=== PATIENT | male | born 1985 | race Caucasian/White ===

== ENCOUNTER 2019-06-26 11:36 | Emergency (ER) | payer BC ==
[~2019-06-26] VITALS: Ht 172.7 cm; Wt 75.3 kg
[2019-06-26] MEDS ORDERED: SULF500T2 PO (11:41)
[2019-06-26] MEDS ORDERED: MERC50TA2 PO (11:41)
[2019-06-26] MEDS ORDERED: IBUPROFEN 400 MG TAB PO ONE (12:15)
[2019-06-26] MEDS ORDERED: PERCOCET 5MG/325MG TAB PO ONE (12:15)
[2019-06-26] MEDS ORDERED: KEFL500C17 PO (12:48)
[2019-06-26] MEDS ORDERED: NORC1TAB7 PO (12:48)
[2019-06-26 13:04] VITALS: BP 159/84
--- NOTE | 2019-06-26 13:35 | REP ---
RIGHT FIRST AND SECOND DIGITS: Five views of the right first and second digits are performed. There is amputation of a portion of the tip of the 1st and 2nd digits soft tissues. There is also amputation of a portion of a tuft of the first distal phalanx. There is also amputation of a portion of a 2nd distal phalanx posteriorly as seen on the lateral view. Otherwise, no fracture or dislocation is seen. Electronically Signed by Jerod Styles MD 06/26/2019 04:21 P
== END 2019-06-26 13:08 | disposition home or self-care (01) ==
LOC: M ED 11:36
DX: S68.120A Partial traumatic metacarpophalangeal amputation of right index finger, initial encounter (principal); S68.021A Partial traumatic metacarpophalangeal amputation of right thumb, initial encounter; W31.2XXA Contact with powered woodworking and forming machines, initial encounter; Y92.098 Other place in other non-institutional residence as the place of occurrence of the external cause; K51.90 Ulcerative colitis, unspecified, without complications; Z79.2 Long term (current) use of antibiotics

== ENCOUNTER 2019-06-27 12:56 | Emergency (ER) | payer BC ==
[~2019-06-27] VITALS: Ht 172.7 cm; Wt 75.0 kg
[~2019-06-27 12:56] MED LIST: KEFL500C17 PO; MERC50TA2 PO; NORC1TAB7 PO; SULF500T2 PO
[2019-06-27 12:57] VITALS: BP 132/69
== END 2019-06-27 13:41 | disposition home or self-care (01) ==
LOC: M ED 12:56
DX: Z48.00 Encounter for change or removal of nonsurgical wound dressing (principal); S61.101A Unspecified open wound of right thumb with damage to nail, initial encounter; S61.300A Unspecified open wound of right index finger with damage to nail, initial encounter; W31.2XXA Contact with powered woodworking and forming machines, initial encounter; Y92.89 Other specified places as the place of occurrence of the external cause; Z79.899 Other long term (current) drug therapy; Z79.2 Long term (current) use of antibiotics

== ENCOUNTER → 2020-03-14 | Outpatient (REF) | payer BC | LOC: M LAB REF 12:35 | PROVIDERS: ATTEND Nurse Practitioner Adult Health | DX: D64.9 Anemia, unspecified (principal); K51.919 Ulcerative colitis, unspecified with unspecified complications ==

== ENCOUNTER → 2020-03-28 | Outpatient (REF) | payer BC ==
[2020-03-28 17:18] LABS: C REACTIVE PROTEIN QUANTITATIV 0.93 MG/DL (0.00-0.30); URIC ACID 4.6 MG/DL (3.5-7.2)
[2020-03-31 16:08] LABS: Lyme Disease IgG Ab 18 kDa Ban Absent (.); Lyme Disease IgG Ab 23 kDa Ban Absent (.); Lyme Disease IgG Ab 28 kDa Ban Absent (.); Lyme Disease IgG Ab 30 kDa Ban Absent (.); Lyme Disease IgG Ab 39 kDa Ban Absent (.); Lyme Disease IgG Ab 41 kDa Ban Absent (.); Lyme Disease IgG Ab 45 kDa Ban Absent (.); Lyme Disease IgG Ab 58 kDa Ban Absent (.); Lyme Disease IgG Ab 66 kDa Ban Absent (.); Lyme Disease IgG Ab 93 kDa Ban Absent (.); Lyme Disease IgG West Blot Int Negative (.); Lyme Disease IgG/IgM Antibodie <0.91 ISR (0.00-0.90); Lyme Disease IgM Ab 23 kDa Ban Absent (.); Lyme Disease IgM Ab 39 kDa Ban Absent (.); Lyme Disease IgM Ab 41 kDa Ban Absent (.); Lyme Disease IgM Ab Quantitati 0.91 index (0.00-0.79); Lyme Disease IgM West Blot Int Negative (.)
== END ==
LOC: M LAB REF 16:14
PROVIDERS: ATTEND Nurse Practitioner Adult Health
DX: Z11.59 Encounter for screening for other viral diseases (principal); K51.90 Ulcerative colitis, unspecified, without complications; D61.818 Other pancytopenia; M25.579 Pain in unspecified ankle and joints of unspecified foot

== ENCOUNTER → 2023-11-27 | Outpatient (REF) | payer BC ==
[~2023-11-27] MED LIST changes: +GLYCCAP PO; +HUMI40KI2 SC; +VITA100093 PO
[2023-11-27 19:39] LABS: PERCENT SATURATION 17.9 % (19.7-50.0)
[2023-11-27 19:42] LABS: FERRITIN 45.4 NG/ML (10.5-307.3)
== END ==
LOC: M LAB REF 16:42
PROVIDERS: ATTEND Internal Medicine
DX: D64.9 Anemia, unspecified (principal)

== ENCOUNTER 2024-04-17 10:12 | Emergency (ER) | payer BC ==
[~2024-04-17] VITALS: Ht 182.9 cm; Wt 70.0 kg
[2024-04-17 10:17] VITALS: BP 131/80; TEMP 98; O2SAT 99
[2024-04-17 10:55] LABS: BASO % 0.5 % (0.0-1.0); EOS % 0.3 % (0.0-3.0); HEMATOCRIT 41.6 % (42.0-52.0); HEMOGLOBIN 13.9 g/dl (13.5-17.5); LYMPH # 1.1 10^3/uL (1.5-5.0); LYMPH % 12.7 % (24.0-44.0); MEAN CORPUSCULAR HEMOGLOBIN 30.6 pg (27.0-33.0); MEAN CORPUSCULAR HGB CONC 33.4 g/dl (32.0-36.5); MEAN CORPUSCULAR VOLUME 91.6 fl (80.0-96.0); MONO # 0.9 10^3/uL (0.0-0.8); NEUTROPHILS # 6.6 10^3/uL (1.5-8.5); NEUTROPHILS % 76.3 % (36.0-66.0); PLATELET COUNT, AUTOMATED 268 10^3/uL (150-450); RED BLOOD COUNT 4.54 10^6/uL (4.30-6.10); WHITE BLOOD COUNT 8.7 10^3/uL (4.0-10.0)
[2024-04-17 12:11] LABS: CK-MB VALUE MASS 1.5 NG/ML (<3.6)
[2024-04-17 12:13] LABS: CPK CREATINE PHOSPHOKINASE 111 U/L (46-171); MB/CK RELATIVE INDEX 1.35 (< OR =4)
[2024-04-17 12:15] LABS: FREE T4 1.56 NG/DL (0.89-1.76); THYROID STIMULATING HORMONE 0.815 uIU/ML (0.55-4.78)
[2024-04-17 12:17] LABS: BLOOD UREA NITROGEN 8 MG/DL (9-23); CALCIUM LEVEL 9.5 MG/DL (8.5-10.1); CARBON DIOXIDE LEVEL 29 MMOL/L (20-31); CHLORIDE LEVEL 104 MMOL/L (98-107); CREATININE FOR GFR 0.78 MG/DL (0.70-1.30); GLOMERULAR FILTRATION RATE > 60.0 (>60); GLUCOSE, FASTING 95 MG/DL (60-100); MAGNESIUM LEVEL 1.7 MG/DL (1.8-2.4); POTASSIUM SERUM 4.2 MMOL/L (3.5-5.1); SODIUM LEVEL 142 MMOL/L (136-145)
[2024-04-17] MEDS: MAG SULF 1GM/100ML (MAG RUN) 1 GM in IV 1 EA IV ONE (12:27)
[2024-04-17] MEDS ORDERED: ESSE250T PO (13:05)
== END 2024-04-17 13:10 | disposition home or self-care (01) ==
LOC: M ED 10:12 → EDBD 10:12 → M ED 13:10
DX: R00.2 Palpitations (principal); E83.42 Hypomagnesemia; F12.10 Cannabis abuse, uncomplicated; F10.10 Alcohol abuse, uncomplicated; Z79.899 Other long term (current) drug therapy
CPT/HCPCS: 71045; 80048; 82550; 82553; 83735; 84439; 84443; 84484; 85025; 93005; 93041; 94760; 96374; 99284; J3475